=== PATIENT | female | born 1990 | race American Indian/Alaskan Native ===

== ENCOUNTER 2016-10-05 00:24 | Emergency (ER) | payer OTHER ==
[2016-10-05 02:57] LABS: Basophils % (Auto) 0.6 % (0.0-1.8); Eosinophils % (Auto) 0.1 % (0.0-4.3); Hematocrit 36.1 % (30.3-42.9); Mean Corpuscular HGB Conc 33 % (30-34); Mean Corpuscular Hemoglobin 30 pg (28-32); Mean Corpuscular Volume 89 fl (79-97); Platelet Count 200 K/mm3 (140-440); Red Blood Count 4.06 M/mm3 (3.65-5.03); Red Cell Distribution Width 14.1 % (13.2-15.2); White Blood Count 6.7 K/mm3 (4.5-11.0)
[2016-10-05 03:02] LABS: Alanine Aminotransferase 6 units/L (7-56); Albumin 4.1 g/dL (3.9-5); Albumin/Globulin Ratio 1.2 %; Alkaline Phosphatase 43 units/L (35-129); Anion Gap 17 mmol/L; BUN/Creatinine Ratio 13.75; Blood Urea Nitrogen 11 mg/dL (7-17); Calcium 9.9 mg/dL (8.4-10.2); Carbon Dioxide 24 mmol/L (22-30); Chloride 103.9 mmol/L (98-107); Glucose 115 mg/dL (65-100); Potassium 4.2 mmol/L (3.6-5.0); Sodium 141 mmol/L (137-145); Total Protein 7.4 g/dL (6.3-8.2)
[2016-10-05 03:22] LABS: Bilirubin,Urine NEG (Negative); Blood,Urine NEG (Negative); Ketones,Urine NEG (Negative); Leukocyte Esterase,Urine MOD (Negative); Mucus,Urine FEW /HPF; Nitrite,Urine NEG (Negative); Protein,Urine <15 mg/dL mg/dL (Negative); Urobilinogen,Urine < 2.0 mg/dL (<2.0)
[2016-10-05 03:24] LABS: Erythrocyte Sedimentation Rate 15 mm/Hr (0-20)
--- NOTE | 2016-10-05 07:02 | Cat Scan Report ---
FINAL REPORT EXAM: CT HEAD/BRAIN W/O CONTRAST. HISTORY: Headaches. TECHNIQUE: Unenhanced axial CT images of the brain were obtained. No prior studies are available for comparison. FINDINGS: The cortical sulci and ventricles are within normal limits for patient's age. There is no extra-axial fluid collection, mass, mass effect, midline shift, hydrocephalus, or acute intracranial hemorrhage. The visualized paranasal sinuses and mastoid air cells are clear. There is no skull fracture or other osseous abnormality. There are several scattered punctate calcifications in the right parotid gland. IMPRESSION: No acute intracranial abnormality.
--- NOTE | 2016-10-05 11:40 | Emergency Department Report ---
ED Headache HPI - General Chief Complaint: Headache Stated Complaint: HEADACHE Time Seen by Provider: 10/05/16 11:37 Source: patient - History of Present Illness Initial Comments: Patient stated that her headache began approximately 3 days ago. She doesn't recall if it had an acute onset. Last night she developed a recurrent occipital headache which is moderate in intensity. She did not describe neck stiffness or soreness she had no photophobia no nausea no vomiting. Said no recent fever or chills. Patient is concerned because her mother had a cerebral aneurysm with surgery when she was about 54 years of age. The patient has never had any cerebral imaging in the past. She denies any focal neurological change. She is comfortable at the time of my encounter. Timing/Duration: other (states 3 days) Quality: moderate Head Injury Location: occipital Recent Head Trauma: no recent headache/trauma Associated Symptoms: denies symptoms Allergies/Adverse Reactions: Allergies No Known Allergies Allergy (Unverified 11/09/12 08:50) Home Medications: Ambulatory Orders Sulfamethoxazole/Trimethoprim [Bactrim DS] 1 each PO BID #14 tablet 11/09/12 Azithromycin [Zithromax] 1,000 mg PO ONCE #2 tablet 05/27/13 Butalb/Acetaminophen/Caffeine [Fioricet 50-300-40 mg CAP] 1 cap PO Q6HR PRN #10 cap 10/05/16 ED Review of Systems ROS: Stated complaint: HEADACHE Other details as noted in HPI Constitutional: denies: chills, fever Eyes: denies: eye pain, eye discharge, vision change ENT: denies: ear pain, throat pain Respiratory: denies: cough, shortness of breath, wheezing Cardiovascular: denies: chest pain, palpitations Endocrine: no symptoms reported Gastrointestinal: denies: abdominal pain, nausea, diarrhea Genitourinary: denies: urgency, dysuria, discharge Musculoskeletal: denies: back pain, joint swelling, arthralgia Skin: denies: rash, lesions Neurological: headache. denies: weakness, paresthesias Psychiatric: denies: anxiety, depression Hematological/Lymphatic: denies: easy bleeding, easy bruising ED Past Medical Hx - Past Medical History Previous Medical History?: No - Surgical History Past Surgical History?: No - Social History Smoking Status: Current Every Day Smoker Substance Use Type: Marijuana - Medications Home Medications: Home Medications Medication Instructions Recorded Confirmed Last Taken Type Sulfamethoxazole/Trimethoprim 1 each PO BID #14 tablet 11/09/12 Unknown Rx [Bactrim DS] Azithromycin [Zithromax] 1,000 mg PO ONCE #2 tablet 05/27/13 Unknown Rx Butalb/Acetaminophen/Caffeine 1 cap PO Q6HR PRN #10 cap 10/05/16 Unknown Rx [Fioricet 50-300-40 mg CAP] ED Physical Exam - General Limitations: No Limitations General appearance: alert, in no apparent distress - Head Head exam: Present: atraumatic, normocephalic - Eye Eye exam: Present: normal appearance. Absent: scleral icterus - ENT ENT exam: Present: mucous membranes moist - Neck Neck exam: Present: normal inspection - Respiratory Respiratory exam: Present: normal lung sounds bilaterally. Absent: respiratory distress - Cardiovascular Cardiovascular Exam: Present: regular rate, normal rhythm. Absent: systolic murmur, diastolic murmur, rubs, gallop - GI/Abdominal GI/Abdominal exam: Present: soft, normal bowel sounds. Absent: distended, tenderness, guarding, rebound, rigid - Extremities Exam Extremities exam: Present: normal inspection - Back Exam Back exam: Present: normal inspection - Neurological Exam Neurological exam: Present: alert, oriented X3, CN II-XII intact, normal gait, other (cerebellar testing was normal visual phelan were equal by confrontation) . Absent: motor sensory deficit - Psychiatric Psychiatric exam: Present: normal affect, normal mood - Skin Skin exam: Present: warm, dry, intact, normal color. Absent: rash ED Course Vital Signs 10/05/16 10/05/16 10/05/16 01:27 12:34 12:35 Temperature 98.8 F 98.3 F Pulse Rate 58 L 71 Respiratory 18 15 15 Rate Blood Pressure 118/45 Blood Pressure 118/67 [Left] O2 Sat by Pulse 100 100 100 Oximetry - Reevaluation(s) Reevaluation #1: Patient required oral medication only for her headache. She was discharged in improved condition pain sutton and neurologically intact. 10/05/16 15:53 ED Medical Decision Making - Lab Data Result diagrams: 10/05/16 02:26 10/05/16 02:26 Laboratory Results - last 24 hr 10/05/16 10/05/16 10/05/16 02:26 02:26 02:26 WBC 6.7 RBC 4.06 Hgb 12.0 Hct 36.1 MCV 89 MCH 30 MCHC 33 RDW 14.1 Plt Count 200 Lymph % (Auto) 18.6 [place] % (Auto) 4.7 Eos % (Auto) 0.1 Baso % (Auto) 0.6 Lymph # 1.2 [place] # 0.3 Eos # 0.0 Baso # 0.0 Seg Neutrophils % 76.0 H Seg Neutrophils # 5.1 ESR 15 Sodium 141 Potassium 4.2 Chloride 103.9 Carbon Dioxide 24 Anion Gap 17 BUN 11 Creatinine 0.8 Estimated GFR > 60 BUN/Creatinine Ratio 13.75 Glucose 115 H Calcium 9.9 Total Bilirubin 0.20 AST 13 ALT 6 L Alkaline Phosphatase 43 Total Protein 7.4 Albumin 4.1 Albumin/Globulin Ratio 1.2 HCG, Qual Negative Urine Color Urine Turbidity Urine pH Ur Specific [place] Urine Protein Urine Glucose (UA) Urine Ketones Urine Blood Urine Nitrite Urine Bilirubin Urine Urobilinogen Ur Leukocyte Esterase Urine WBC (Auto) Urine RBC (Auto) U Epithel Cells (Auto) Urine Mucus 10/05/16 Unknown WBC RBC Hgb Hct MCV MCH MCHC RDW Plt Count Lymph % (Auto) [place] % (Auto) Eos % (Auto) Baso % (Auto) Lymph # [place] # Eos # Baso # Seg Neutrophils % Seg Neutrophils # ESR Sodium Potassium Chloride Carbon Dioxide Anion Gap BUN Creatinine Estimated GFR BUN/Creatinine Ratio Glucose Calcium Total Bilirubin AST ALT Alkaline Phosphatase Total Protein Albumin Albumin/Globulin Ratio HCG, Qual Urine Color Yellow Urine Turbidity Clear Urine pH 6.0 Ur Specific [place] 1.013 Urine Protein <15 mg/dl Urine Glucose (UA) Neg Urine Ketones Neg Urine Blood Neg Urine Nitrite Neg Urine Bilirubin Neg Urine Urobilinogen < 2.0 Ur Leukocyte Esterase Mod Urine WBC (Auto) 16.0 H Urine RBC (Auto) 3.0 U Epithel Cells (Auto) 3.0 Urine Mucus Few - Radiology Data Radiology results: report reviewed interpreted by me: CT head nl per rad. MRA negative for aneurysm. Critical care attestation.: If time is entered above; I have spent that time in minutes in the direct care of this critically ill patient, excluding procedure time. ED Disposition Clinical Impression: Cephalalgia Qualifiers: Headache type: unspecified Headache chronicity pattern: unspecified pattern Intractability: intractable Qualified Code(s): R51 - Headache Disposition: DC-01 TO HOME OR SELFCARE Is pt being admited?: No Does the pt Need Aspirin: No Condition: Stable Instructions: Acute Headache (ED) Additional Instructions: Return any acute change or problem Prescriptions: Butalb/Acetaminophen/Caffeine [Fioricet 50-300-40 mg CAP] 1 cap PO Q6HR PRN #10 cap PRN Reason: headache Referrals: PRIMARY CARE, [Primary Care Provider] - 3-5 Days Time of Disposition: 15:53
--- NOTE | 2016-10-05 13:41 | Magnetic Resonance Report ---
FINAL REPORT EXAM: MR MRA/MRV HEAD WO CON HISTORY: posterior H/A mother c aneurysm TECHNIQUE: Routine MRA of the brain. PRIORS: CT brain 10/05/2016 FINDINGS: Distal vertebral arteries, basilar artery, and posterior cerebral arteries appear normal. Patent posterior communicating arteries bilaterally Distal internal carotid arteries, anterior, and middle cerebral arteries appear normal. No aneurysm, vascular occlusion, or focal stenosis seen. IMPRESSION: 1. No aneurysm seen.
[2016-10-05] MEDS ORDERED: NORCO 5/325 ONE (15:29)
[2016-10-05] MEDS ORDERED: NORCO 5/325 PO ONE (15:32)
[2016-10-05 16:15] VITALS: BP 119/66
== END 2016-10-05 16:16 | disposition home or self-care (01) ==
LOC: ED 00:24
DX: R51 Headache (principal); F17.200 Nicotine dependence, unspecified, uncomplicated; F12.10 Cannabis abuse, uncomplicated
CPT/HCPCS: 36415; 70450; 70544; 80053; 81001; 84703; 85025; 85652

== ENCOUNTER 2017-12-02 18:03 | Emergency (ER) | payer SELFPAY ==
[2017-12-02 18:31] VITALS: BP 140/67
[2017-12-02 18:51] LABS: HCG Qualitative,Urine Negative (Negative)
--- NOTE | 2017-12-02 21:07 | Emergency Department Report ---
ED General Adult HPI - General Chief complaint: Chest Pain Stated complaint: CHEST PAIN/TIGHTNESS Time Seen by Provider: 12/02/17 20:55 Source: patient Mode of arrival: Ambulatory Limitations: No Limitations - History of Present Illness Initial comments: Patient 27-year-old female who has a left-sided chest wall pain patient works as a warehouse to frequently worse above. 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 There is no shortness of breath or cough no fever pain is 4/10 reproduces with movement and palpation there is no swelling bruises or ecchymosis , numbness tingling or paralysis. Onset/Timin -: week(s) Location: chest (chest wall ) Radiation: non-radiation (evaluated for coronary artery desires G purulence) Severity scale (0 -10): 4 Quality: aching (all) Consistency: intermittent Improves with: medication, rest Worsens with: movement Treatments Prior to Arrival: none - Related Data Previous Rx's Medication Instructions Recorded Last Taken Type Sulfamethoxazole/Trimethoprim 1 each PO BID #14 tablet 11/09/12 Unknown Rx [Bactrim DS] Azithromycin [Zithromax] 1,000 mg PO ONCE #2 tablet 05/27/13 Unknown Rx Butalb/Acetaminophen/Caffeine 1 cap PO Q6HR PRN #10 cap 10/05/16 Unknown Rx [Fioricet 50-300-40 mg CAP] Cyclobenzaprine [Flexeril] 10 mg PO BID PRN #20 tablet 12/02/17 Unknown Rx Ibuprofen 800 mg PO TID PRN #30 tablet 12/02/17 Unknown Rx Menthol/Camphor [[place] 1 applicatio TP TID PRN #1 tube 12/02/17 Unknown Rx Ointment] Allergies Allergy/AdvReac Type Severity Reaction Status Date / Time No Known Allergies Allergy Verified 12/02/17 18:23 ED Review of Systems ROS: Stated complaint: CHEST PAIN/TIGHTNESS Other details as noted in HPI Constitutional: denies: chills, fever Eyes: denies: eye pain, eye discharge, vision change ENT: denies: ear pain, throat pain Respiratory: denies: cough, shortness of breath, wheezing Cardiovascular: denies: chest pain, palpitations Endocrine: no symptoms reported Gastrointestinal: denies: abdominal pain, nausea, diarrhea Genitourinary: denies: urgency, dysuria, discharge Musculoskeletal: other (chest wall pain ). denies: back pain, joint swelling, arthralgia Skin: denies: rash, lesions Neurological: denies: headache, weakness, paresthesias Psychiatric: denies: anxiety, depression Hematological/Lymphatic: denies: easy bleeding, easy bruising ED Past Medical Hx - Past Medical History Previous Medical History?: No - Surgical History Past Surgical History?: No - Social History Smoking Status: Never Smoker Substance Use Type: None - Medications Home Medications: Home Medications Medication Instructions Recorded Confirmed Last Taken Type Sulfamethoxazole/Trimethoprim 1 each PO BID #14 tablet 11/09/12 Unknown Rx [Bactrim DS] Azithromycin [Zithromax] 1,000 mg PO ONCE #2 tablet 05/27/13 Unknown Rx Butalb/Acetaminophen/Caffeine 1 cap PO Q6HR PRN #10 cap 10/05/16 Unknown Rx [Fioricet 50-300-40 mg CAP] Cyclobenzaprine [Flexeril] 10 mg PO BID PRN #20 tablet 12/02/17 Unknown Rx Ibuprofen 800 mg PO TID PRN #30 tablet 12/02/17 Unknown Rx Menthol/Camphor [[place] 1 applicatio TP TID PRN #1 tube 12/02/17 Unknown Rx Ointment] ED Physical Exam - General Limitations: No Limitations General appearance: alert, in no apparent distress - Head Head exam: Present: atraumatic, normocephalic - Eye Eye exam: Present: normal appearance - ENT ENT exam: Present: mucous membranes moist - Neck Neck exam: Present: normal inspection - Respiratory Respiratory exam: Present: normal lung sounds bilaterally (that he), chest wall tenderness. Absent: respiratory distress, wheezes, stridor - Cardiovascular Cardiovascular Exam: Present: regular rate, normal rhythm, normal heart sounds. Absent: systolic murmur, diastolic murmur, rubs, gallop - GI/Abdominal GI/Abdominal exam: Present: soft, normal bowel sounds - Rectal Rectal exam: Present: deferred - Extremities Exam Extremities exam: Present: normal inspection - Back Exam Back exam: Present: normal inspection - Neurological Exam Neurological exam: Present: alert, oriented X3 - Psychiatric Psychiatric exam: Present: normal affect, normal mood - Skin Skin exam: Present: warm, dry, intact, normal color. Absent: rash ED Course Vital Signs 12/02/17 18:24 Temperature 98.3 F Pulse Rate 70 Respiratory 16 Rate Blood Pressure 140/67 O2 Sat by Pulse 100 Oximetry ED Medical Decision Making - Medical Decision Making Patient refuses x-rays this is chest wall pain however there is no flail chest no ecchymosis this pain is reproducible by palpation there is no cough no wheeze no shortness of breath plan ibuprofen 800 mg by mouth 3 times a day when necessary pain tiger balm rub when necessary patient advised to return to ED if symptoms persist for chest x-ray patient verbalizes understanding and agreement with same. Critical care attestation.: If time is entered above; I have spent that time in minutes in the direct care of this critically ill patient, excluding procedure time. ED Disposition Clinical Impression: Chest wall pain Disposition: TO HOME OR SELFCARE Is pt being admited?: No Does the pt Need Aspirin: No Condition: Good Instructions: Costochondritis (ED) Prescriptions: Cyclobenzaprine [Flexeril] 10 mg PO BID PRN #20 tablet PRN Reason: Muscle Spasm Ibuprofen 800 mg PO TID PRN #30 tablet PRN Reason: pain Menthol/Camphor [[place] Ointment] 1 applicatio TP TID PRN #1 tube PRN Reason: pain Referrals: [facility] [Outside] - 3-5 Days Forms: Work/School Release Form(ED) Time of Disposition: 21:18
== END 2017-12-02 21:36 | disposition home or self-care (01) ==
LOC: ED 18:03
DX: R07.89 Other chest pain (principal)
CPT/HCPCS: 81025; 93005; 93010; 99283